=== PATIENT | female | born 1945 | race Caucasian/White ===

== ENCOUNTER 2016-11-02 08:22 | Day surgery (SDC) | payer MEDICARE ==
[2016-11-02] MEDS ORDERED: LACTATED RINGERS 1,000 ML IV SCH (09:00)
[2016-11-02] MEDS ORDERED: IV START KIT ONE (09:14)
[2016-11-02] MEDS ORDERED: PROPOFOL 40 ML IV ONE (10:41)
== END 2016-11-02 12:05 | disposition home or self-care (01) ==
LOC: SDC 08:22
PROVIDERS: ATTEND Family Medicine
PROC: 0DJD8ZZ Inspection of Lower Intestinal Tract, Via Natural or Artificial Opening Endoscopic (ICD-10-PCS; principal; 2016-11-02)
DX: Z12.11 Encounter for screening for malignant neoplasm of colon (principal); I10 Essential (primary) hypertension; Z87.891 Personal history of nicotine dependence
CPT/HCPCS: G0121; J7120